=== PATIENT | female | born 1950 | race Asian ===

== ENCOUNTER 2016-08-04 20:14 | Observation (INO) | payer OTHER, MEDICARE ==
[2016-08-04] MEDS ORDERED: SODIUM CHLORIDE 0.9% 1,000 ML IV ONE ×2 (22:30)
[2016-08-04] MEDS ORDERED: IOPAMIDOL-300 100 ML VIAL IVP ONE (22:44)
[2016-08-04] MEDS ORDERED: HYDROmorphone 1 MG/ML SYRINGE IVP STA (22:55)
[2016-08-04] MEDS ORDERED: PIPERACILLIN/TAZOBACTAM 3.375 GM in SODIUM CHLORIDE 0.9% MINIBAG 100 ML IV STA (23:00)
[2016-08-04] MEDS ORDERED: HYDROmorphone 1 MG/ML SYRINGE ONE (23:07)
[2016-08-04] MEDS ORDERED: SODIUM CHLORIDE 0.9% 2,000 ML IV ONE (23:08)
[2016-08-04] MEDS ORDERED: HYDROmorphone 1 MG/ML SYRINGE IVP PRN (23:37)
[2016-08-04] MEDS ORDERED: PROMETHAZINE 25 MG/1 ML VIAL IM PRN (23:37)
[2016-08-04] MEDS ORDERED: SODIUM CHLORIDE FLUSH 0.9% 10 ML SYRINGE IVP PRN (23:37)
[2016-08-04] MEDS ORDERED: ONDANSETRON 4 MG/2 ML VIAL IVP STA (23:55)
[2016-08-04] MEDS ORDERED: ONDANSETRON 4 MG/2 ML VIAL ONE (23:59)
[2016-08-05] MEDS: SODIUM CHLORIDE FLUSH 0.9% 10 ML SYRINGE IVP SCH ×2 (05:01→14:45)
[2016-08-05] MEDS: LACTATED RINGERS 1,000 ML IV SCH ×3 (06:15→21:02)
[2016-08-05] MEDS ORDERED: PANTOPRAZOLE 40 MG VIAL IVP SCH (07:00)
[2016-08-05] MEDS ORDERED: LACTATED RINGERS 1,000 ML IV ONE ×3 (11:37→12:47)
[2016-08-05] MEDS ORDERED: BUPIVACAINE 0.5% PF 30 ML VIAL SUBQ ONE ×2 (11:55→13:07)
[2016-08-05] MEDS ORDERED: GLYCOPYRROLATE 1 MG/5 ML VIAL IVP ONE (12:00)
[2016-08-05] MEDS ORDERED: KETOROLAC 30 MG/ML VIAL IVP ONE (12:00)
[2016-08-05] MEDS ORDERED: PROPOFOL 200 MG/20 ML VIAL IVP ONE (12:00)
[2016-08-05] MEDS ORDERED: ACETAMINOPHEN 1,000 MG/100 ML VIAL IV ONE (12:00)
[2016-08-05] MEDS ORDERED: fentaNYL 100 MCG/2 ML VIAL IVP ONE (12:00)
[2016-08-05] MEDS ORDERED: DEXAMETHASONE 4 MG/ML VIAL IVP ONE (12:00)
[2016-08-05] MEDS ORDERED: NEOSTIGMINE 1 MG/1 ML 10 ML MDV IVP ONE (12:00)
[2016-08-05] MEDS ORDERED: ceFAZolin 2 GM/50 ML BAG IV ONE (12:00)
[2016-08-05] MEDS ORDERED: ROCURONIUM 50 MG/5 ML VIAL IVP ONE (12:00)
[2016-08-05] MEDS ORDERED: MIDAZOLAM 2 MG/2 ML VIAL IVP ONE (12:00)
[2016-08-05] MEDS ORDERED: HYDROcod/ACETAM 10 MG/325 MG TABLET PO PRN (14:39)
[2016-08-05] MEDS ORDERED: LIDOCAINE-MPF 2% 5 ML VIAL IM ONE (20:54)
== END 2016-08-05 20:55 | disposition home or self-care (01) ==
PROC: 0FN44ZZ Release Gallbladder, Percutaneous Endoscopic Approach (ICD-10-PCS; 2016-08-05)
PROC: 0FT44ZZ Resection of Gallbladder, Percutaneous Endoscopic Approach (ICD-10-PCS; principal; 2016-08-05 11:00)
DX: K80.12 Calculus of gallbladder with acute and chronic cholecystitis without obstruction (principal); K66.0 Peritoneal adhesions (postprocedural) (postinfection); N13.2 Hydronephrosis with renal and ureteral calculous obstruction; K21.9 Gastro-esophageal reflux disease without esophagitis; Z87.440 Personal history of urinary (tract) infections; Z90.710 Acquired absence of both cervix and uterus
CPT/HCPCS: 47562; 74177; 76705; 80053; 81001; 83690; 85025; 96365; 96375; 99218; 99284; 99285; A9270; J0131; J0690; J1170; J7120; Q9967

== ENCOUNTER 2017-08-22 18:32 | Emergency (ER) | payer OTHER, MEDICARE ==
--- NOTE | 2017-08-22 20:46 | ED Physician Documentation ---
PD HPI UPPER EXT INJURY - Stated complaint Stated Complaint: RT SHOULDER PX - Chief complaint Chief Complaint: Ext Problem - History obtained from History obtained from: Patient - History of Present Illness Location: Right, Shoulder Type of injury: No: Fall, Twist Timing - onset: How many days ago (3) Timing - duration: Days (3) Timing - details: Gradual onset (she says she awoke with pain in shoulder right side 3 days ago and it has increased, worse with ROM, particularly abduction and external rotation. No noted injury. No rash, redness, sores.) Worsened by: Moving, Palpating Associated symptoms: No: Weakness, Numbness, Swelling, Discolored Similar symptoms before: Has not had sx before Recently seen: Not recently seen Review of Systems Constitutional: denies: Fever, Chills Nose: denies: Rhinorrhea / runny nose, Congestion Throat: denies: Sore throat Respiratory: denies: Cough GI: denies: Vomiting, Diarrhea Skin: denies: Rash, Lesions Musculoskeletal: reports: Joint pain (right shoulder) Neurologic: denies: Focal weakness, Numbness PD PAST MEDICAL HISTORY - Past Medical History Cardiovascular: Hypertension - Past Surgical History Past Surgical History: Yes /[employer]IVER: Hysterectomy - Present Medications Home Medications: Ambulatory Orders Medication Instructions Recorded Confirmed Dexamethasone [Decadron] 4 mg PO DAILY #5 tablet 08/22/17 HYDROcod/ACETAM 5/325 [[place] 5/325] 1 tab PO Q6H PRN #15 tablet 08/22/17 Methocarbamol [Robaxin] 500 mg PO Q6H PRN #25 tablet 08/22/17 - Allergies Allergies/Adverse Reactions: Allergies Allergy/AdvReac Type Severity Reaction Status Date / Time levofloxacin [From Levaquin] Allergy Hives Verified 08/04/16 23:06 - Social History Does the pt smoke?: No Smoking Status: Never smoker Does the pt drink ETOH?: Yes Does the pt have substance abuse?: No - Immunizations Immunizations are current?: Yes - POLST Patient has POLST: No PD ED PE NORMAL - Vitals Vital signs reviewed: Yes - General General: Alert and oriented X 3, Well developed/nourished, Other (guarding ROM of the right shoulder. ) - HEENT HEENT: Pharynx benign - Neck Neck: Supple, no meningeal sign, No bony TTP, No adenopathy - Cardiac Cardiac: RRR, No murmur - Respiratory Respiratory: Clear bilaterally - Derm Derm: Normal color, Warm and dry, No rash - Extremities Extremities: Other (right shoulder tender anterior shoulder without rash nor sores. Not warm nor red. Pain with abduction against resistance. Rotational movements hurt, mostly ext rotation and abduction. Some with cross chest movement. ) - Neuro Neuro: Alert and oriented X 3, No motor deficit, No sensory deficit Results - Vitals Vitals: Oxygen O2 Source Room air PD MEDICAL DECISION MAKING - ED course Complexity details: considered differential (no abrupt injury; onset gradual of pain and worsening, c/w tendonitis. ), d/w patient Departure - Departure Disposition: Home, Self Care Clinical Impression: Right shoulder tendonitis Condition: Stable Record reviewed to determine appropriate education?: Yes Follow-Up: KARLY MOROCHO MD [Primary Care Provider] - Prescriptions: Dexamethasone [Decadron] 4 mg PO DAILY #5 tablet HYDROcod/ACETAM 5/325 [[place] 5/325] 1 tab PO Q6H PRN #15 tablet PRN Reason: Pain Methocarbamol [Robaxin] 500 mg PO Q6H PRN #25 tablet PRN Reason: Spasms Comments: Use the sling for the shoulder as needed for comfort. Gentle range of motion of the shoulder periodically. Use some heat for muscle stiffness in the shoulder and neck. It seems likely to be him muscle inflammation from the neck to the shoulder. Use ibuprofen to 3 times a day. Also use Decadron anti- inflammatory daily for 5 more days. Robaxin muscle relaxant if needed for spasms and stiffness. Add Tylenol or hydrocodone if needed for pain. Recheck with your primary care if not better over the next 5-6 days, call for an appointment. Discharge Date/Time: 08/22/17 21:42
[2017-08-22] MEDS ORDERED: DEXAMETHASONE 10 MG/ML VIAL PO STA (21:16)
[2017-08-22] MEDS ORDERED: METHOCARBAMOL 500 MG TABLET PO STA (21:16)
[2017-08-22] MEDS ORDERED: HYDROcod/ACET 5/325 Prepack 4 PO STA (21:16)
[2017-08-22] MEDS ORDERED: NAPROXEN 250 MG TABLET PO STA (21:16)
[2017-08-22] MEDS ORDERED: HYDROcod/ACETAM 5/325 MG TABLET PO STA (21:16)
[2017-08-22 21:30] VITALS: BP 147/68
== END 2017-08-22 21:42 | disposition home or self-care (01) ==
LOC: ED 18:32
DX: M75.91 Shoulder lesion, unspecified, right shoulder (principal); I10 Essential (primary) hypertension
CPT/HCPCS: 99283; A9270

== ENCOUNTER 2023-05-21 10:01 | Emergency (ER) | payer MEDICARE, OTHER ==
[2023-05-21 10:32] VITALS: O2SAT 100
--- NOTE | 2023-05-21 10:52 | XRAY Report ---
PROCEDURE: Chest 2V INDICATIONS: cough TECHNIQUE: 2 views of the chest were acquired. COMPARISON: None. FINDINGS: Surgical changes and devices: None. Lungs and pleura: No pleural effusions or pneumothorax. Lungs are clear. Mediastinum: Mediastinal contours appear normal. Heart size is mildly prominent. Bones and chest wall: No suspicious bony lesions. Overlying soft tissues appear unremarkable. IMPRESSION: No acute cardiopulmonary process. Reviewed by: Carline Guajardo MD on 05/21/2023 10:51 AM [facility] Approved by: Carline Guajardo MD on 05/21/2023 10:51 AM [facility] Station ID: [id number]
[2023-05-21 11:23] LABS: B. PARAPERTUSSIS- RESP PCR PAN NOT DETECTED; B. PERTUSSIS- RESP PCR PANEL NOT DETECTED; C. PNEUMONIAE- RESP PCR PANEL NOT DETECTED; CORONAVIRUS 229E-RESP PCR NOT DETECTED; CORONAVIRUS HKU1-RESP PCR NOT DETECTED; CORONAVIRUS NL63-RESP PCR NOT DETECTED; CORONAVIRUS OC43-RESP PCR NOT DETECTED; HUMAN METAPNEUMOVIRUS NOT DETECTED; INFLUENZA A- RESP PCR PANEL NOT DETECTED; INFLUENZA B - RESP PCR PANEL NOT DETECTED; M. PNEUMONIAE- RESP PCR PANEL NOT DETECTED; PARAINFLUENZA VIRUS 1 NOT DETECTED; PARAINFLUENZA VIRUS 2 NOT DETECTED; PARAINFLUENZA VIRUS 3 NOT DETECTED; PARAINFLUENZA VIRUS 4 NOT DETECTED; RHINOVIRUS/ENTEROVIRUS NOT DETECTED; RSV- RESP PCR PANEL NOT DETECTED; SARS-CoV-2 -RESP PCR PANEL NOT DETECTED
--- NOTE | 2023-05-21 12:12 | ED Physician Documentation ---
PD HPI URI - Stated complaint Stated Complaint: COUGH,RUNNY NOSE - Chief complaint Chief Complaint: General - History obtained from History obtained from: Patient - History of Present Illness Timing - onset: How many weeks ago (2) Timing duration: Weeks (2) Timing details: Gradual onset, Still present Associated symptoms: Chills, Productive cough, Dyspnea. No: Fever, NVD Contributing factors: Sick contact (her similar sick started the week prior. Both are still with cough and dyspnea, sputum.). No: COPD / asthma Improves by: Rest Worsened by: Activity Similar symptoms before: Has not had sx before Recently seen: Not recently seen Review of Systems Constitutional: reports: Chills. denies: Fever Nose: reports: Congestion Throat: denies: Sore throat Cardiac: reports: Chest pain / pressure. denies: Palpitations Respiratory: reports: Dyspnea, Cough, Wheezing GI: denies: Vomiting, Diarrhea Skin: denies: Rash PD PAST MEDICAL HISTORY - Past Medical History Past Medical History: Yes Cardiovascular: Hypertension Respiratory: None Neuro: None Endocrine/Autoimmune: None GI: Other STUDIO ASSISTANT: None : None HEENT: None Psych: None Musculoskeletal: None Derm: None - Past Surgical History Past Surgical History: Yes General: Colonoscopy /STUDIO ASSISTANT: Hysterectomy - Present Medications Home Medications: Ambulatory Orders Medication Instructions Recorded Confirmed Albuterol Sulf [Ventolin Hfa 1 - 2 puffs INH Q4HR PRN #1 each 05/21/23 Inhaler] Amox/Clav 875/125 [Augmentin] 1 each PO Q12H #10 tablet 05/21/23 Atorvastatin [Lipitor] 10 mg ORAL DAILY 05/21/23 05/21/23 Benzonatate [Tessalon] 100 mg PO TID PRN #20 cap 05/21/23 Ezetimibe [Zetia] 10 mg PO QD 05/21/23 05/21/23 Propranolol ER [Inderal LA] 60 mg PO DAILY 05/21/23 05/21/23 dexAMETHasone [Decadron] 4 mg PO DAILY #5 tablet 05/21/23 - Allergies Allergies/Adverse Reactions: Allergies Allergy/AdvReac Type Severity Reaction Status Date / Time levofloxacin [From Levaquin] Allergy Hives Verified 05/21/23 10:20 - Social History Does the pt smoke?: No Smoking Status: Never smoker Does the pt drink ETOH?: No Does the pt have substance abuse?: No - Immunizations Immunizations are current?: Yes - POLST Patient has POLST: No PD ED PE NORMAL - Vitals Vital signs reviewed: Yes - General General: Alert and oriented X 3, No acute distress, Well developed/nourished - HEENT HEENT: Pharynx benign - Neck Neck: Supple, no meningeal sign, No adenopathy - Cardiac Cardiac: RRR, No murmur - Respiratory Respiratory: No respiratory distress. No: Clear bilaterally (hilar area congestion with breathing and cough.) - Abdomen Abdomen: Soft, Non tender - Extremities Extremities: No edema, No calf tenderness / cord Results - Vitals Vitals: Oxygen O2 Source Room air - Labs Labs: Laboratory Tests 05/21/23 10:25 Nasal Adenovirus (PCR) NOT DETECTED Nasal B. parapertussis DNA (PCR) NOT DETECTED Nasal Coronavir 229E PCR NOT DETECTED Nasal Coronavir HKU1 PCR NOT DETECTED Nasal Coronavir NL63 PCR NOT DETECTED Nasal Coronavir OC43 PCR NOT DETECTED Nasal Enterovir/Rhinovir PCR NOT DETECTED Nasal Influenza B PCR NOT DETECTED Nasal Influenza A PCR NOT DETECTED Nasal Parainfluen 1 PCR NOT DETECTED Nasal Parainfluen 2 PCR NOT DETECTED Nasal Parainfluen 3 PCR NOT DETECTED Nasal Parainfluen 4 PCR NOT DETECTED Nasal RSV (PCR) NOT DETECTED Nasal B.pertussis DNA PCR NOT DETECTED Nasal C.pneumoniae (PCR) NOT DETECTED Shira Human Metapneumo PCR NOT DETECTED Nasal M.pneumoniae (PCR) NOT DETECTED Nasal SARS-CoV-2 (PCR) NOT DETECTED - Rads (name of study) chest xray Relevant Findings:: Prelim report reviewed, EMP independent interpretation of test (no infiltrates nor acute process.) PD Medical Decision Making - ED course Complexity details: reviewed results, considered differential (duration of cough and sputum with now worsening after 2 weeks could seem coinfection now. Can treat with inhaler, steroids, Augmentin. ), d/w patient Departure - Departure Disposition: 01 Home, Self Care Clinical Impression: Persistent cough, Acute bronchitis Condition: Stable Record reviewed to determine appropriate education?: Yes Follow-Up: SHIRA De [Provider Group] Prescriptions: Albuterol Sulf [Ventolin Hfa Inhaler] 1 - 2 puffs INH Q4HR PRN #1 each PRN Reason: Shortness Of Air/Wheezing Amox/Clav 875/125 [Augmentin] 1 each PO Q12H #10 tablet dexAMETHasone [Decadron] 4 mg PO DAILY #5 tablet Benzonatate [Tessalon] 100 mg PO TID PRN #20 cap PRN Reason: Cough Comments: Your viral panel test was negative. However that does not preclude having had one of the main virus type illnesses initially. Your chest x-ray is clear without any signs of pneumonia. Given the prolonged course of your cough and such, it may be just a persistent inflammation from the initial respiratory infection. However it can be a secondary bronchitis/bacterial. I would treat it with a combination of an albuterol inhaler 2 puffs 4 times daily for the next several days to week in combination with Decadron steroid for bronchial inflammation and Augmentin antibiotic for possible bacterial portion as well. Add benzonatate if needed for cough. Stay well-hydrated. I sent your prescriptions to the [facility]. Forms: PCP List Discharge Date/Time: 05/21/23 13:26
[2023-05-21] MEDS: BENZONATATE 100 MG CAPSULE PO STA (13:02)
[2023-05-21] MEDS: dexAMETHasone 4 MG TABLET PO STA (13:02)
[2023-05-21] MEDS: AMOX/CLAV 875 MG/125 MG TABLET PO STA (13:02)
[2023-05-21 13:11] VITALS: BP 148/63
== END 2023-05-21 13:26 | disposition home or self-care (01) ==
LOC: ED 10:01
DX: J20.9 Acute bronchitis, unspecified (principal); R05.3 Chronic cough
CPT/HCPCS: 71046; 87633; 99284; A9270; J8540

== ENCOUNTER 2023-07-20 09:02 | Outpatient (CLI) | payer MEDICARE, OTHER ==
--- NOTE | 2023-07-23 09:08 | Ultrasound Report ---
ULTRASOUND OF LEFT AXILLA: 07/20/2023 CLINICAL: Left Axilla skin palp. Comparison is made to exams dated: 05/10/2020 ultrasound, 05/10/2020 mammogram - [facility], mammogram - [facility], and 07/20/2023 mammogram - [facility]. Color flow ultrasound of the left axilla was performed. Ashley scale images of the real-time examinat ion were reviewed. There is a benign oval cyst with a smooth internal wall in the left axilla. This oval cyst is hypoec hoic with posterior acoustic enhancement. This correlates as palpated and with mammography findings. IMPRESSION: BENIGN There is no sonographic evidence of malignancy. The oval cyst most likely is a sebaceous cyst or an oil cyst and is benign. Recommend clinical follow up. Return to annual mammogram screening schedule is recommended. This exam was interpreted at Station ID: [id number]. Electronically Signed By: Britton Pardo M.D. ar/:07/20/2023 13:44:57 letter sent: No_Letter Ultrasound BI-RADS: 2 Benign BI-RADS CATEGORY: (2) - 2 RECOMMENDATION: (ANNUAL) - Recommend routine annual screening mammography. [id number] return to screening LATERALITY: (B)
--- NOTE | 2023-07-23 09:08 | Mammography Report ---
BILATERAL DIGITAL DIAGNOSTIC MAMMOGRAM 3D/2D WITH EXAGGERATED CC AXILLARY TAIL: 07/20/2023 CLINICAL: Palpable left breast lump. Due for bilateral exam. Comparison is made to exams dated: 05/10/2020 mammogram - [facility], 07/12/2018 mammogram, and 07/12 mammogram - [facility]. Both breasts are heterogeneously dense, which may obscure small masses (category c / 51-75% glandular tissue). There is a stable 1 cm oval fat containing asymmetry with a circumscribed margin and rim calcificatio ns in the left breast posterior depth superior region seen on the mediolateral oblique view only. Th is likely correlates as palpated. No other significant masses, calcifications, or other findings are seen in either breast. IMPRESSION: INCOMPLETE: NEEDS ADDITIONAL IMAGING EVALUATION The stable 1 cm oval fat containing asymmetry in the left breast is indeterminate. An ultrasound is recommended. Based on the Tyrer Cuzick model (a risk assessment model) the patient's lifetime risk is 7.3% and her 10 year risk is 6.0%. According to the ACR, ACS, and NCCN guidelines, an annual breast MRI exam jannie g with mammogram is recommended if the patient's lifetime risk is 20% or greater. This exam was interpreted at Station ID: [id number]. NOTE: For mammograms, a report in lay terms will be sent to the patient. Approximately 15% of breast malignancies will not be visualized mammographically. In the management of a palpable breast mass, a negative mammogram must not discourage biopsy of a clinically suspicious lesion. Electronically Signed By: Britton Pardo M.D. ar/:07/20/2023 13:43:23 ACR BI-RADS Category 0: Incomplete 3340F PARENCHYMAL PATTERN: (D) - The breast(s) demonstrate(s) heterogeneously dense fibroglandular parenchy ma. BI-RADS CATEGORY: (0) - 0 Ultrasound [id number] Immediate follow-up LATERALITY: (L)
== END 2023-07-20 09:03 | disposition home or self-care (01) ==
LOC: DI 09:02
PROVIDERS: ATTEND Family Medicine
DX: N60.02 Solitary cyst of left breast (principal); R92.333 Mammographic heterogeneous density, bilateral breasts